=== PATIENT | female | born 1980 | race African-American/Black ===

== ENCOUNTER → 2020-09-22 09:08 | Outpatient (BNVA) | payer OTHER, SELFPAY | PROVIDERS: Visit Provider Obstetrics & Gynecology | DX: Z30.09 Encounter for other general counseling and advice on contraception (principal) | CPT/HCPCS: 99212 ==

== ENCOUNTER 2021-08-01 09:07 | Outpatient (REF) | payer OTHER, SELFPAY ==
[2021-08-03 16:37] LABS: HPV mRNA E6/E7 rflx Not Detected (Not Detected)
== END 2021-08-01 09:08 | disposition home or self-care (01) ==
LOC: HO.LAB 09:07
PROVIDERS: Visit Provider Obstetrics & Gynecology
DX: Z01.419 Encounter for gynecological examination (general) (routine) without abnormal findings (principal); Z11.51 Encounter for screening for human papillomavirus (HPV)
CPT/HCPCS: 87624; 88142

== ENCOUNTER 2021-10-06 11:42 | Emergency (ER) | payer OTHER, SELFPAY ==
--- NOTE | ~2021-10-06 | XR_ITS ---
EXAMINATION: XR KNEE, LEFT CLINICAL INFORMATION: Abrasion. Pain. COMPARISON: None TECHNIQUE: Four views of the left knee. FINDINGS: There is no evidence of acute fracture or dislocation of the left knee. No left knee effusion is seen. Left knee joint spaces are maintained. XR/XR knee LT 4V IMPRESSION: No bony abnormality of the left knee identified.
[2021-10-06 11:50] VITALS: BP 126/86; PULSE 99; RESP 18; TEMP 36.3; O2SAT 100; BMI 34.2
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
== END 2021-10-06 13:43 | disposition home or self-care (01) ==
PROVIDERS: Emergency Provider Emergency Medicine
DX: S80.212A Abrasion, left knee, initial encounter (principal); V43.52XA Car driver injured in collision with other type car in traffic accident, initial encounter; R51.9 Headache, unspecified; Y93.89 Activity, other specified; Y92.414 Local residential or business street as the place of occurrence of the external cause; Y99.9 Unspecified external cause status
CPT/HCPCS: 73564; 99283

== ENCOUNTER 2021-10-09 17:11 | Emergency (ER) | payer OTHER, SELFPAY ==
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
[2021-10-09 19:22] VITALS: BP 122/82; PULSE 95; RESP 16; TEMP 36.8; O2SAT 100; BMI 34.2
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
[2021-10-09 21:43] VITALS: BP 116/72; PULSE 85; RESP 20; TEMP 36.9; O2SAT 100
[2021-10-09 22:02] LABS: UPreg QC Valid YES; Urine Pregnancy NEGATIVE (NEGATIVE)
[2021-10-09] MEDS: Acetaminophen 325 MG TABLET 650 MG PO (22:50)
== END 2021-10-09 23:26 | disposition home or self-care (01) ==
PROVIDERS: Physician Assistant; Emergency Provider Internal Medicine
DX: S16.1XXA Strain of muscle, fascia and tendon at neck level, initial encounter (principal); S39.012A Strain of muscle, fascia and tendon of lower back, initial encounter; V49.9XXA Car occupant (driver) (passenger) injured in unspecified traffic accident, initial encounter; M48.061 Spinal stenosis, lumbar region without neurogenic claudication; M54.2 Cervicalgia; R51.9 Headache, unspecified; Y93.9 Activity, unspecified; Y92.9 Unspecified place or not applicable; Y99.9 Unspecified external cause status
CPT/HCPCS: 70450; 72125; 72131; 81025; 99284

== ENCOUNTER 2022-07-14 13:45 | Emergency (ER) | payer OTHER, SELFPAY ==
--- NOTE | ~2022-07-14 | US_ITS ---
EXAMINATION: US FIRST TRIMESTER CLINICAL INFORMATION: Vaginal bleeding LMP: End of April Beta-hC COMPARISON: Prior ultrasound 2020 TECHNIQUE: Transabdominal imaging was performed. FINDINGS: UTERUS AND INTRAUTERINE GESTATIONAL SAC: There is a single intrauterine gestational sac, 1.1 cm suggesting of 5 weeks 6 days. There are however no poles. No yolk sac.. CROWN-RUMP LENGTH (CRL) : There is no pole. YOLK SAC: Not found SUBCHORIONIC HEMORRHAGE: None OVARIES: Right: 4.5 x 3 x 3.1 cm, there is corpus luteal cyst 2.6 x 2.5 x 2.2 cm. Left: 3.1 x 2.3 x 1.9 cm. FREE FLUID: None OTHER FINDINGS: None US/US OB pelvic and transvaginal IMPRESSION: 1. There is a fluid-filled cystic structure within the endometrial canal might be a gestational sac 1.1 cm. There is however no pole identified. No yolk sac or cardiac activity. Might be too early in the . Attention to follow-up imaging surveillance recommended in 2 weeks. 2. Hypoechoic structure in the right ovary likely Corpus luteal cyst measures 2.6 cm.
[2022-07-14 13:47] VITALS: BP 137/78; PULSE 84; RESP 16; TEMP 36.7; O2SAT 100; BMI 35.5
--- NOTE | 2022-07-14 14:48 | ED_ITS ---
HPI - General Chief complaint: Vaginal Bleeding Stated complaint: /Vaginal bleeding Time Seen by Provider: 07/14/22 14:15 Source: patient Mode of arrival: ambulatory Limitations: no limitations History of Present Illness HPI Narrative: 41-year-old female who is [id number] who reports her last menstrual period was approximately the end of April presenting to the ED with complaints of possible with vaginal bleeding that started today. She reports that she is started having some scant vaginal bleeding no clots this morning. She denies any other symptoms related to this including fevers, chills, dizziness, headaches, neck pain/stiffness, trouble swallowing or breathing, chest pain or s hortness of breath, dyspnea on exertion, orthopnea, palpitations, paresthesias, abdominal pain, back pain, flank pain, dysuria, hematuria, abnormal vaginal discharge, black or bloody stools, recent travel or sick contacts, thoughts of STDs, recent falls or trauma or any other symptoms complaints or concerns at this time. MD Complaint: vaginal bleeding Onset (ago): hour(s) (Few hours prior to arrive) Pain Consistency: constant Severity: mild Relieving factors: none Exacerbating factors: none Associated symptoms: denies other symptoms Vaginal discharge: none Vaginal bleeding: light Date of Last Menstrual Period: 05/14/22 OB History - Previous Pregnancies: no complications care: none Related Data : 3 Para: 0 Total number of abortions (spontaneous and elective): 1 Home Medications Medication Instructions Recorded Confirmed ibuprofen 400 mg tablet 800 mg PO Q8H PRN pain 09/22/20 Previous Rx's Medication Instructions Recorded cyclobenzaprine 10 mg tablet 10 mg PO TID PRN muscle spasm #10 10/06/21 tabs diazepam 2 mg tablet (Valium) 2 mg PO BID PRN muscle spasm #6 10/09/21 tabs lidocaine 5 % topical patch 1 patch topical DAILY PRN pain #15 10/09/21 ea Allergies Allergy/AdvReac Type Severity Reaction Status Date / Time No Known Allergies Allergy Verified 10/06/21 11:50 Review of Systems Review of Systems: Constitutional : No Fever, No Chills ENT/Mouth : No sore throat, No Rhinorrhea Eyes: No Eye Pain, No Redness Cardiovascular : No Chest Pain, No SOB Respiratory : No Cough, No Sputum, No Wheezing Gastrointestinal : No Nausea, No Vomiting, No Diarrhea, No abdominal pain, Genitourinary : + irregular bleeding, No Dysuria, No Urinary Frequency, No pelvic pain, No vaginal discharge, no hematuria Musculoskeletal : No Myalgias Skin : No rash Neuro : No Weakness, No Headache Psych : No Anxiety/Panic, No Depression Heme/Lymph: No bruising, No Lymphadenopathy Endocrine : No Polyuria, No Polydipsia Yes all other systems are reviewed and are negative [facility] Past Medical History Attestation statement: The following information was validated with the patient. Source: old records reviewed and nursing notes reviewed Medical History ASCUS of cervix with negative high risk HPV : 3 Para: 0 Total number of abortions (spontaneous and elective): 1 Date of Last Menstrual Period: 05/14/22 Family History Family History Mother HTN (hypertension) Maternal Aunt Breast cancer Social History Social History Alcohol intake: never Patient Tobacco Use Status: Never used Tobacco Use of substances other than those prescribed or required for medical reasons: No Advance Directives: No Advance Directives Information Provided: No Patient : Yes Sexual orientation: Straight/Heterosexual Gender identity: Female Physical Exam Vital Signs: Vital Signs: Last Vital Signs Temp 98.7 F 07/14/22 16:00 Pulse 84 07/14/22 16:00 Resp 16 07/14/22 16:00 BP 121/77 07/14/22 16:00 Pulse Ox 97 07/14/22 16:00 O2 Del Method 07/14/22 16:00 BMI result Body Mass Index 35.5 vital signs have been reviewed as normal and appeared to be correct. Blood pressure normal. Heart rate normal. Respiration rate normal. Temperature normal. Oxygen saturation normal. Appearance: Alert. Oriented X3. No acute distress. Head: Normal external exam. Normocephalic. Atraumatic. Eyes: PERRLA. EOMI. Conjunctiva and sclera normal. Eyelids normal. ENT: Pharynx normal. Uvula midline. Moist mucous membranes. No trismus noted. No drooling noted. No muffled voice noted. Neck: Normal inspection. Neck supple. FROM. No adenopathy. Thyroid Normal. No meningeal signs. No neck mass noted. CVS: Normal heart rate and rhythm. Heart sound normal. No murmurs noted. Pulses normal throughout. Respiratory: No respiratory distress. Painless inspiration. Breath sounds normal. No wheezes/rales/rhonchi noted.No accessory muscle usage noted or decreased air movement noted. Abdomen: Soft and nontender. Bowel sounds normal in all 4 quadrants. No distention noted. No organomegaly noted. No visible injury noted. : Supervised by MARTÍN Manning Normal external appearance of urethra. No lesions/lacerations or discharge or tenderness noted. Speculum exam normal appearance/palpation of vagina normal. No abnormal vaginal discharge noted. Otherwise no vaginal erythema. No foreign bodies noted. No vaginal laceration/lesions noted. No tissue present in vagina. No vaginal mass noted. No vaginal swelling noted. No vaginal tenderness noted. Normal appearance of cervix. Normal palpation of cervix. Cervical os is closed. No abnormal cervical discharge noted. Although patient noted to have some dark red/brown colored vaginal bleeding although no active bleeding and no clots noted. No cervical lesion/mass. No Bartholin cyst noted. No cervical motion tenderness noted. Negative chandelier sign. Normal bimanual exam. Uterine size normal. Bladder normal to palpation. Uterine consistency normal. Normal cervical palpation. Uterine mobility normal. Uterine shape normal. Normal adnexa. Normal rectovaginal exam. Back: No CVA tenderness. Full range of motion noted. Skin: Skin warm and dry. Normal skin color. Normal skin turgor. No rashes/lesions/lacerations noted. Extremities: No lower extremity edema. Extremities exhibit normal range of motion. Extremities nontender. Neuro: Oriented X 3. No motor deficit. No sensory deficit. Reflexes normal. Course Course Course Narrative: 14:30pm - 41-year-old female who is [id number] who reports her last menstrual period was approximately the end of April presenting to the ED with complaints of possible with vaginal bleeding that started today. She reports that she is started having some scant vaginal bleeding no clots this morning. Plan: Will obtain labs including serum quant, Rh factor, UA, UHCG, swab for bacterial vaginosis/Trichomonas and gonorrhea chlamydia and re-evaluate Reevaluation(s) Reevaluation #1: - labs reviewed and patient BUN 6. Serum quant 4139. UA positive for . Trace blood otherwise no evidence of UTI. - Gonorrhea/chlamydia/bacterial vaginosis/Trichomonas and yeast swabs are pending. - patient O positive for blood type. - awaiting OB ultrasound at this time will re-evaluate. Time: 16:36 Reevaluation #2: - OB ultrasound revealed fluid-filled cystic structure within the endometrial canal might be a gestational sac 1.1 cm. However there is no pole identified. No yolk sac or cardiac activity noted. They report might be too early in . Recommend repeat ultrasound in 2 weeks. Also noted to have a possible corpus luteal cyst to the right ovary that measures 2.6 cm. Otherwise no other processes noted. - therefore at this time will consult with Dr. Herbie JO for further recommendations. Time: 17:48 Reevaluation #3: - we actually do not have any OB on-call. Therefore I discussed this case with Dr. Lira. Due to patient's cervical os being closed in her H&H being normal at this time we will discharge her and I will place the order for serum quant on Saturday07/16/2022 08:00 where she will have to go to the outpatient laboratory to have repeat serum quant. - I also explained her that she will have to call the OBGYN Dr. Stoner is office to follow up within 1-2 weeks for repeat evaluation/ultrasound. And I discussed with her about spontaneous symptoms and if she has any worsening symptoms or bleeding that she needs to return immediately. Patient understands agrees with this plan. Time: 18:34 MDM - OB/Uterine Contractions Medical Records Attestation: I reviewed the patient's medical records. Lab Data Attestation: I reviewed the patient's lab results. Result diagrams: 07/14/22 15:01 07/14/22 15:01 Labs: Lab Results 07/14/22 07/14/22 07/14/22 Range/Units 15:01 15:01 15:01 WBC 7.8 (4.8-10.8) X10*3/uL RBC 4.80 (4.20-5.50) X10*6/uL Hgb 12.5 (12.0-16.0) g/dl Hct 38.9 (37.0-47.0) % MCV 81.0 (80.0-98.0) fL MCH 26.0 L (27.0-33.0) pg MCHC 32.1 (31.0-35.0) g/dl RDW 13.7 (11.0-16.0) % Plt Count 350 (160-400) X10*3/uL MPV 8.9 L (9.4-12.3) fL Immature Gran % (Auto) 0.3 (0.0-0.4) % Neut % (Auto) 57.6 (45-73) % Lymph % (Auto) 35.4 (20-40) % [place] % (Auto) 6.1 (2-11) % Eos % (Auto) 0.3 (0-4) % Baso % (Auto) 0.3 (0-2) % Lymph # (Auto) 2.8 (1.2-4.9) X10*3/uL [place] # (Auto) 0.5 (0.1-1.2) X10*3/uL Eos # (Auto) 0.0 (0.0-0.4) X10*3/uL Baso # (Auto) 0.0 (0.0-0.2) X10*3/uL Abs Immat Gran (auto) 0.02 (0.00-0.03) X10*3/uL Absolute Neuts (auto) 4.5 (2.0-8.3) x10*3/uL Absolute Nucleated RBC 0.000 (0.0-0.012) X10*3/uL Nucleated RBC % (auto) 0.0 (0.0-0.2) /100WBC PT 11.5 (10.0-13.1) SEC INR 1.0 (0.9-1.1) Sodium 136 (135-145) mmol/L Potassium 3.8 (3.3-5.1) mmol/L Chloride 103 (96-108) mmol/L Carbon Dioxide 22 (22-29) mmol/L Anion Gap 15 (12-20) BUN 6 L (9-16) mg/dL Creatinine 0.73 (0.5-1.4) mg/dL Estim Creat Clear Calc 123.3 Estimated GFR > 60 Random Glucose 80 (60-115) mg/dL Calcium 9.2 (8.4-10.2) mg/dL Magnesium 1.9 (1.6-2.6) mg/dL Total Bilirubin 0.8 (0.0-1.0) mg/dL AST 20 (5-31) U/L ALT 26 (0-31) U/L Alkaline Phosphatase 76 (39-117) U/L Total Protein 7.9 (6.5-8.0) g/dL Albumin 4.1 (3.5-5.0) g/dL Lipase 38 (8-78) U/L Beta HCG, Quant 4139 mIU/mL Urine Color Urine Appearance Urine pH (5.0-8.0) Ur Specific [place] (1.005-1.025) Urine Protein (Neg-Trace) mg/dL Urine Glucose (UA) (Negative) mg/dL Urine Ketones (Negative) mg/dL Urine Blood (Negative) Urine Nitrite (Negative) Ur Leukocyte Esterase (Negative) Urine RBC (0-2) /HPF Urine WBC (0-5) /HPF Ur Squamous Epith Cells (0-2) /HPF Urine Bacteria (None Seen) Hyaline Casts (0-2) /LPF Urine Test (NEGATIVE) Blood Type 07/14/22 07/14/22 07/14/22 Range/Units 15:01 15:01 15:01 WBC (4.8-10.8) X10*3/uL RBC (4.20-5.50) X10*6/uL Hgb (12.0-16.0) g/dl Hct (37.0-47.0) % MCV (80.0-98.0) fL MCH (27.0-33.0) pg MCHC (31.0-35.0) g/dl RDW (11.0-16.0) % Plt Count (160-400) X10*3/uL MPV (9.4-12.3) fL Immature Gran % (Auto) (0.0-0.4) % Neut % (Auto) (45-73) % Lymph % (Auto) (20-40) % [place] % (Auto) (2-11) % Eos % (Auto) (0-4) % Baso % (Auto) (0-2) % Lymph # (Auto) (1.2-4.9) X10*3/uL [place] # (Auto) (0.1-1.2) X10*3/uL Eos # (Auto) (0.0-0.4) X10*3/uL Baso # (Auto) (0.0-0.2) X10*3/uL Abs Immat Gran (auto) (0.00-0.03) X10*3/uL Absolute Neuts (auto) (2.0-8.3) x10*3/uL Absolute Nucleated RBC (0.0-0.012) X10*3/uL Nucleated RBC % (auto) (0.0-0.2) /100WBC PT (10.0-13.1) SEC INR (0.9-1.1) Sodium (135-145) mmol/L Potassium (3.3-5.1) mmol/L Chloride (96-108) mmol/L Carbon Dioxide (22-29) mmol/L Anion Gap (12-20) BUN (9-16) mg/dL Creatinine (0.5-1.4) mg/dL Estim Creat Clear Calc Estimated GFR Random Glucose (60-115) mg/dL Calcium (8.4-10.2) mg/dL Magnesium (1.6-2.6) mg/dL Total Bilirubin (0.0-1.0) mg/dL AST (5-31) U/L ALT (0-31) U/L Alkaline Phosphatase (39-117) U/L Total Protein (6.5-8.0) g/dL Albumin (3.5-5.0) g/dL Lipase (8-78) U/L Beta HCG, Quant mIU/mL Urine Color Yellow Urine Appearance Clear Urine pH 6.5 (5.0-8.0) Ur Specific [place] <= 1.005 (1.005-1.025) Urine Protein Negative (Neg-Trace) mg/dL Urine Glucose (UA) Negative (Negative) mg/dL Urine Ketones Negative (Negative) mg/dL Urine Blood Trace H (Negative) Urine Nitrite Negative (Negative) Ur Leukocyte Esterase Negative (Negative) Urine RBC 0-2 (0-2) /HPF Urine WBC 0-5 (0-5) /HPF Ur Squamous Epith Cells 0-2 (0-2) /HPF Urine Bacteria None Seen (None Seen) Hyaline Casts 0-2 (0-2) /LPF Urine Test POSITIVE H (NEGATIVE) Blood Type O Positive Imaging Data OB ultrasound: Attestation: I personally reviewed and interpreted this imaging study as follows: Radiologist's impression: FINDINGS:? UTERUS AND INTRAUTERINE GESTATIONAL SAC: There is a single intrauterine gestational sac, 1.1 cm suggesting of 5 weeks 6 days. There are however no poles. No yolk sac.. CROWN-RUMP LENGTH (CRL) : There is no pole. YOLK SAC: Not found SUBCHORIONIC HEMORRHAGE: None OVARIES: Right: 4.5 x 3 x 3.1 cm, there is corpus luteal cyst 2.6 x 2.5 x 2.2 cm. Left: 3.1 x 2.3 x 1.9 cm. FREE FLUID: None OTHER FINDINGS: None US/US OB pelvic and transvaginal IMPRESSION: 1. There is a fluid-filled cystic structure within the endometrial canal might be a gestational sac 1.1 cm. There is however no pole identified. No yolk sac or cardiac activity. Might be too early in the . Attention to follow-up imaging surveillance recommended in 2 weeks. ? 2. Hypoechoic structure in the right ovary likely Corpus luteal cyst measures 2.6 cm. Critical Care Time Critical Care Time Critical Care Time: Yes Total Critical Care Time: 60 Attestation: I personally attest to this time spent taking care of the patient Discharge Plan Discharge Clinical Impression: Vaginal bleeding, Positive test Patient Disposition: Home, Self-Care Instructions: (ED), Threatened Miscarriage (ED) Additional Instructions: We were unable to identify a pole/sac on your ultrasound today there reporting that your possibly 5 weeks which may be too early to actually identify a pole/sac or cardiac activity on ultrasound. Therefore I placed an order in the computer for repeat blood work for a serum quant for Saturday07/16/2022. You will go to the outpatient office by 08:00 and have repeat labs. Then you will call Dr. Stoner is office and make a follow-up appointment within 1 week for repeat ultrasound and further evaluation treatment. Although if you have any worsening symptoms including abdominal pain/worsening vaginal bleeding then you need to return immediately. Prescriptions: No Action diazepam [Valium] 2 mg tablet 2 mg PO BID PRN (Reason: muscle spasm) Qty: 6 0RF Rx Instructions: Patient can partially fill prescription upon request lidocaine 5 % adhesive patch,medicated 1 patch topical DAILY PRN (Reason: pain) Qty: 15 0RF Rx Instructions: leave on most painful area for up to 12 hrs cyclobenzaprine 10 mg tablet 10 mg PO TID PRN (Reason: muscle spasm) Qty: 10 0RF ibuprofen 400 mg tablet 800 mg PO Q8H PRN (Reason: pain) Referrals: Ki Stoner MD [Physician] - 2 days (Call to make a follow-up appointment within 1 week)
[2022-07-14 15:09] LABS: Basophils Percent Auto 0.3 % (0-2); Eosinophils Percent Auto 0.3 % (0-4); Hematocrit 38.9 % (37.0-47.0); Hemoglobin 12.5 g/dl (12.0-16.0); Imm Gran Abs Auto 0.02 X10*3/uL (0.00-0.03); Imm Gran Pct Auto 0.3 % (0.0-0.4); Lymphocytes Absolute Auto 2.8 X10*3/uL (1.2-4.9); Lymphocytes Percent Auto 35.4 % (20-40); MANUAL DIFF FLAG NO; Mean Corpuscular HGB Conc 32.1 g/dl (31.0-35.0); Mean Platelet Volume 8.9 fL (9.4-12.3); Monocytes Absolute Auto 0.5 X10*3/uL (0.1-1.2); Monocytes Percent Auto 6.1 % (2-11); Neutrophils Absolute Auto 4.5 x10*3/uL (2.0-8.3); Neutrophils Percent Auto 57.6 % (45-73); Platelet Count 350 X10*3/uL (160-400); Red Cell Distribution Width 13.7 % (11.0-16.0); White Blood Count 7.8 X10*3/uL (4.8-10.8)
[2022-07-14 15:11] LABS: Appearance Urine Clear; Color Urine Yellow; Glucose Urine UA Negative (Negative); Leukocyte Esterase Urine Negative (Negative); Nitrite Urine Negative (Negative); PH 6.5 (5.0-8.0); Specific Gravity - Urine <= 1.005 (1.005-1.025); Urine Blood Trace (Negative); Urine Ketones Negative (Negative); Urine Protein Negative (Neg-Trace)
[2022-07-14 15:13] LABS: UPreg QC Valid YES; Urine Pregnancy POSITIVE (NEGATIVE)
[2022-07-14 15:15] LABS: Prothrombin Time 11.5 SEC (10.0-13.1)
[2022-07-14 15:16] LABS: Bacteria Urine None Seen (None Seen); Hyaline Casts Urine 0-2 /LPF (0-2); RBC Urine 0-2 /HPF (0-2); Squamous Epithelial Cell Urine 0-2 /HPF (0-2); WBC Urine 0-5 /HPF (0-5)
[2022-07-14 15:42] LABS: Alanine Aminotransferase 26 U/L (0-31); Albumin Level 4.1 g/dL (3.5-5.0); Alkaline Phosphatase 76 U/L (39-117); Anion Gap 15 (12-20); Aspartate Amino Transferase 20 U/L (5-31); Bilirubin Total 0.8 mg/dL (0.0-1.0); Blood Urea Nitrogen 6 mg/dL (9-16); Calcium 9.2 mg/dL (8.4-10.2); Carbon Dioxide 22 mmol/L (22-29); Chloride 103 mmol/L (96-108); Creatinine Clr Calc Pharmacy 123.3; Estimated Glomerular Filt Rate > 60; Glucose Random 80 mg/dL (60-115); Lipase 38 U/L (8-78); Magnesium 1.9 mg/dL (1.6-2.6); Potassium 3.8 mmol/L (3.3-5.1); Sodium 136 mmol/L (135-145); Total Protein 7.9 g/dL (6.5-8.0)
[2022-07-14 15:47] LABS: HCG Quantitative 4139 mIU/mL
[2022-07-14 16:00] VITALS: BP 121/77; PULSE 84; RESP 16; TEMP 37.1; O2SAT 97
--- NOTE | 2022-07-14 16:43 | PC.NURSE ---
pt a&ox3, vss, denies any pain, pt pending transvaginal u/s. no new orders at this time
[2022-07-15 12:09] LABS: CT PCR NOT DETECTED (Not Detect.); NG PCR NOT DETECTED (Not Detect.)
[2022-07-15 13:56] LABS: BV Int Neg Control Negative (Negative); BV Int Pos Control Positive (Positive)
== END 2022-07-14 18:50 | disposition home or self-care (01) ==
PROVIDERS: Physician Assistant Medical; Emergency Provider Emergency Medicine
DX: O20.9 Hemorrhage in early pregnancy, unspecified (principal); O34.81 Maternal care for other abnormalities of pelvic organs, first trimester; N83.201 Unspecified ovarian cyst, right side; O09.521 Supervision of elderly multigravida, first trimester; Z3A.01 Less than 8 weeks gestation of pregnancy
CPT/HCPCS: 36415; 76801; 76817; 80053; 81001; 81025; 83690; 83735; 84702; 85025; 85610; 86900; 86901; 87480; 87491; 87510; 87591; 87660; 99284

== ENCOUNTER 2022-07-16 08:12 | Outpatient (REF) | payer OTHER, SELFPAY ==
[2022-07-16 09:17] LABS: HCG Quantitative 3781 mIU/mL
== END 2022-07-16 08:13 | disposition home or self-care (01) ==
LOC: HO.LAB 08:12
PROVIDERS: Visit Provider Physician Assistant Medical
DX: O20.0 Threatened abortion (principal)
CPT/HCPCS: 36415; 84702

== ENCOUNTER 2022-07-17 12:50 | Outpatient (REF) | payer OTHER, SELFPAY ==
[2022-07-17 14:33] LABS: HCG Quantitative 1591 mIU/mL
== END 2022-07-17 12:51 | disposition home or self-care (01) ==
LOC: HO.LAB 12:50
PROVIDERS: PCP Internal Medicine; Visit Provider Obstetrics & Gynecology
DX: O20.0 Threatened abortion (principal); O20.9 Hemorrhage in early pregnancy, unspecified; O09.521 Supervision of elderly multigravida, first trimester; Z3A.01 Less than 8 weeks gestation of pregnancy
CPT/HCPCS: 36415; 84702; 99212

== ENCOUNTER 2022-07-31 09:46 | Outpatient (REF) | payer OTHER, SELFPAY ==
[2022-07-31 12:48] LABS: HCG Quantitative 7 mIU/mL
== END 2022-07-31 09:47 | disposition home or self-care (01) ==
LOC: HO.LAB 09:46
PROVIDERS: PCP Internal Medicine; Visit Provider Obstetrics & Gynecology
DX: O03.9 Complete or unspecified spontaneous abortion without complication (principal)
CPT/HCPCS: 36415; 84702; 99212

== ENCOUNTER → 2022-10-30 08:43 | Outpatient (BNVA) | payer OTHER, SELFPAY | PROVIDERS: PCP Internal Medicine; Visit Provider Obstetrics & Gynecology | DX: Z01.419 Encounter for gynecological examination (general) (routine) without abnormal findings (principal); N94.9 Unspecified condition associated with female genital organs and menstrual cycle | CPT/HCPCS: 99212 ==

== ENCOUNTER 2022-12-04 11:18 | Outpatient (REF) | payer OTHER, SELFPAY ==
--- NOTE | ~2022-12-04 | US_ITS ---
EXAMINATION: US PELVIS CLINICAL INFORMATION: Unspecified condition. COMPARISON: None. TECHNIQUE: Ultrasound of the pelvis is performed using both transabdominal and transvaginal transducers along with Doppler. Transvaginal imaging is performed due to inadequate visualization transabdominally. FINDINGS: Uterus: The uterus is anteverted, anteflexed and measures 8.6 x 5.5 x 6.1 The double wall endometrial thickness is 1.2 cm. The uterus is smooth in contour and has normal myometrial echogenicity. No visible fibroid. Adnexa: Both ovaries are visualized. There is normal color flow to the adnexa. There is no ovarian torsion. There is no pelvic ascites or fluid collection. Right ovary measures 4.3 x 1.5 x 1.7 cm and volume 5.7 mL. No focal lesion seen. Previously right ovary measured 4.5 x 3.0 x 3.1 cm. Left ovary measures 6.3 x 3.8 x 3.6 cm and volume 45.1 mL. There is anechoic cyst with septation measuring 3.0 x 2.8 x 2.7 cm. It is likely hemorrhagic or complex cyst. Luteal cyst measuring 3.0 x 2.8 x 2.7 cm. There is small amount of free fluid seen in the endometrial canal with small cyst. US/US pelvic and transvaginal IMPRESSION: 1. Hemorrhagic or corpus luteal 3.0 cm cyst left ovary. 2. The right ovary and uterus are unremarkable. 3. There is minimal free fluid in the endometrial canal.
== END 2022-12-04 11:19 | disposition home or self-care (01) ==
LOC: HO.US 11:18
PROVIDERS: Visit Provider Obstetrics & Gynecology
DX: N94.9 Unspecified condition associated with female genital organs and menstrual cycle (principal)
CPT/HCPCS: 76830; 76856

== ENCOUNTER 2022-12-18 11:15 | Outpatient (REF) | payer OTHER, SELFPAY ==
[2022-12-18 12:47] LABS: HCG Quantitative < 2 mIU/mL
[2022-12-18 17:05] LABS: CT PCR NOT DETECTED (Not Detect.); NG PCR NOT DETECTED (Not Detect.)
== END 2022-12-18 11:16 | disposition home or self-care (01) ==
LOC: HO.LNP 11:15
PROVIDERS: PCP Internal Medicine; Visit Provider Obstetrics & Gynecology
DX: O03.9 Complete or unspecified spontaneous abortion without complication (principal); N83.299 Other ovarian cyst, unspecified side
CPT/HCPCS: 0353U; 84702; 99212

== ENCOUNTER 2023-03-29 13:00 | Outpatient (REF) | payer OTHER, SELFPAY ==
--- NOTE | ~2023-03-29 | US_ITS ---
EXAM: Pelvic Ultrasound CLINICAL INDICATION: Ovarian cyst COMPARISON: Pelvic ultrasound 12/04/2022 TECHNIQUE: The pelvis was evaluated using transabdominal and transvaginal imaging. Color Doppler imaging and spectral analysis of the bilateral ovaries was also performed. FINDINGS: The uterus measures 7.5 x 4.6 x 5.6 cm in longitudinal by AP by transverse dimension. The endometrial stripe is not thickened and measures 0.4 cm. Trace fluid noted within the endometrium. An approximately 1 cm fundal fibroid is noted. The left ovary measures approximately 3.1 x 2.4 x 2.1 cm and is normal. The right ovary measures approximately 4.5 x 2.0 x 4.0 cm and is also normal. There are no abnormal adnexal masses. There is a small amount of free fluid in the pelvis. US/US pelvic and transvaginal IMPRESSION: 1. Normal thickness endometrial stripe. 2. Trace fluid noted within the endometrium. 3. Normal sonographic appearance of the ovaries. 4. Small uterine fibroid. 5. Small amount of free pelvic fluid, often times physiologic in a female of this age.
== END 2023-03-29 13:01 | disposition home or self-care (01) ==
LOC: HO.US 13:00
PROVIDERS: PCP Internal Medicine; Visit Provider Obstetrics & Gynecology
DX: N83.299 Other ovarian cyst, unspecified side (principal)
CPT/HCPCS: 76830; 76856

== ENCOUNTER → 2023-04-24 09:40 | Outpatient (BNVA) | payer OTHER, SELFPAY | PROVIDERS: PCP Internal Medicine; Visit Provider Obstetrics & Gynecology | DX: N83.299 Other ovarian cyst, unspecified side (principal); D25.9 Leiomyoma of uterus, unspecified | CPT/HCPCS: 99212 ==

== ENCOUNTER → 2023-11-04 10:47 | Outpatient (BNVA) | payer OTHER, SELFPAY | PROVIDERS: PCP Internal Medicine; Visit Provider Obstetrics & Gynecology | DX: Z01.419 Encounter for gynecological examination (general) (routine) without abnormal findings (principal) | CPT/HCPCS: 99396 ==

== ENCOUNTER 2023-11-04 10:48 | Outpatient (AMB) | payer OTHER, SELFPAY ==
--- NOTE | 2023-11-04 10:49 | A.OFFVIS_ITS ---
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 No complaints. Last Pap/HPV was in 08/08 was negative No previous screening Mammogram [facility] Medical History ASCUS of cervix with negative high risk HPV Family History Mother HTN (hypertension) Maternal Aunt Breast cancer Social History Alcohol intake: never Patient Tobacco Use Status: Never used Tobacco Sexual orientation: Straight/Heterosexual Gender identity: Female Female Reproductive History Menstrual Age of Menarche: 14 Date of last menstrual period: 10/23/23 Total pregnancies: 4 Full term: 3 Number of Living Children: 3 Ab spontaneous: 1 Date of last pap smear: 08/02/21 Review of Systems Const All systems reviewed & are unremarkable except as noted in HPI and below Card Reports as per HPI Resp Reports as per HPI GI Reports as per HPI and Reports no additional complaints Reports as per HPI Physical Exam Vital Signs: Last Vital Signs BP 122/80 11/04/23 10:51 BMI result Body Mass Index 33.2 Const General: cooperative, healthy appearing and comfortable Chest Chest palpation & inspection: normal inspection of the chest and normal palpation of entire chest wall Breast/axilla inspection: normal inspection of the breasts and normal inspection of the axillae Breast/axilla palpation: normal palpation of the breasts, normal palpation of the axillae and no axillary lymphadenopathy Resp Effort & Inspection: normal respiratory effort Auscultation: clear to auscultation bilaterally Percussion: percussion normal Cardio Palpation: normal PMI Rate: regular rate Rhythm: regular rhythm Heart sounds: no murmurs and no rubs Peripheral pulses: Peripheral pulses 2+ throughout GI Inspection: Yes normal to inspection Palpation (GI): Soft to palpation, nontender, no guarding, not rigid and No hepatosplenomegaly present Percussion: Yes normal to percussion Auscultation: normal bowel sounds Rectal Exam - Female: deferred General: Yes bladder normal to palpation External Female Exam: No lesion Speculum Exam - Vagina: normal appearance of the vagina, normal palpation, normal vaginal discharge and not erythematous Speculum Exam - Cervix: normal appearance of the cervix and normal palpation Bimanual exam- vagina & uterus: normal bimanual exam, normal palpation, uterine size normal, bladder normal to palpation, consistency normal and normal palpation Bimanual Exam- Adnexa, other: normal adnexae, no masses and no tenderness Assessment & Plan Assessment & Plan (1) Well woman exam: Comment: ASCUS HPV negative in 2019 with colpo biopsy negative Negative co testing in 2020 Code(s): Z01.419 - Encounter for gynecological examination (general) (routine) without abnormal findings Plan: Cotesting not indicated this. Mammogram ordered. Counseled the patient about the recommended dietary allowance of 1000 mg of Calcium & 600 IU of vitamin D. The patient was instructed to perform monthly self-breast exams and to schedule an annual exam in a year; All questions answered and the patient verbalized understanding. Instructed the patient to schedule annual exam in a year Orders: Orders MM screening mammo BI Today Z12.31 - Encounter for screening mammogram for malignant neoplasm of breast Coding Level of Care Code Est Pt Prev Care 40-64y(88517) Diagnoses Well woman exam Z01.419
[2023-11-04 10:51] VITALS: BP 122/80; BMI 33.2
== END 2023-11-04 11:31 | disposition home or self-care (01) ==
PROVIDERS: PCP Internal Medicine; Visit Provider Obstetrics & Gynecology
DX: Z01.419 Encounter for gynecological examination (general) (routine) without abnormal findings (principal)
CPT/HCPCS: 99396

== ENCOUNTER 2023-11-07 23:18 | Emergency (ER) | payer OTHER, SELFPAY ==
[2023-11-07 23:27] VITALS: BP 129/90; PULSE 85; RESP 16; TEMP 36.2; O2SAT 99; BMI 35.8
[2023-11-08 00:01] LABS: IDNOW Serial# 08D9AD1C; Strep A Nucleic Acid Negative (Negative)
[2023-11-08 00:38] LABS: Influenza A PCR NEGATIVE (Negative); Influenza B PCR NEGATIVE (Negative); Resp Syncy Virus RNA Qual PCR NEGATIVE (Negative); SARS COV2 PCR INHOUSE NEGATIVE (Negative)
--- NOTE | 2023-11-08 01:10 | ED_ITS ---
HPI - URI/Sore Throat General Chief Complaint: Upper Respiratory Symptoms Stated Complaint: difficulty swallowing, cough Time Seen by Provider: 11/08/23 01:05 Source: patient Mode of arrival: ambulatory Limitations: no limitations History of Present Illness HPI Narrative: 42 yo female with no sig PMH here with c/o sore throat x 3 days and pain when swallowing no fevers no change in voice. Has had tonsillitis one other time MD elicited complaint: sore throat Onset (ago): day(s) (3) Consistency: constant Severity: moderate Description of mucous: clear Able to tolerate fluids by mouth: Yes Exacerbating factors: swallowing Relieving factors: nothing Associated symptoms: denies other symptoms Treatments prior to arrival: none Related Data Home Medications Medication Instructions Recorded Confirmed calcium acetate 667 mg tablet 667 mg PO ONCE 11/04/23 cholecalciferol (vitamin D3) 25 25 mcg PO DAILY 11/04/23 mcg (1,000 unit) capsule Previous Rx's Medication Instructions Recorded amoxicillin 875 mg-potassium 1 tab PO BID #13 tabs 11/08/23 clavulanate 125 mg tablet Allergies Allergy/AdvReac Type Severity Reaction Status Date / Time No Known Allergies Allergy Verified 11/04/23 10:54 Review of Systems Review of Systems: Constitutional : no Fever, no Chills ENT/Mouth : positive sore throat, no runny nose Eyes: No Discharge Cardiovascular : No Chest Pain, No SOB Respiratory : No Cough, No Sputum Gastrointestinal : No Nausea, No Vomiting, No Diarrhea Genitourinary : No Dysuria, No Urinary Frequency Musculoskeletal : no Myalgia Skin : No rash Neuro : No Headache PMFSH Past Medical History Medical History ASCUS of cervix with negative high risk HPV Family History Family History Mother HTN (hypertension) Maternal Aunt Breast cancer Social History Social History Alcohol intake: never Patient Tobacco Use Status: Never used Tobacco Sexual orientation: Straight/Heterosexual Gender identity: Female Physical Exam Vital Signs: Vital Signs: Last Vital Signs Temp 97.2 F 11/07/23 23:27 Pulse 85 11/07/23 23:27 Resp 16 12/21/23 23:27 BP 129/90 H 12/21/23 23:27 Pulse Ox 99 11/07/23 23:27 O2 Del Method Room Air 11/07/23 23:27 BMI result Body Mass Index 35.8 Appearance: Alert. Oriented X3. No acute distress. Eyes: Pupils equal, round and reactive to light. ENT: Pharynx moderate erythema , mild tonsilar swelling R tonsil does have exudates there is no uvula shift or signs of SHINGLE CARRIER or deeper space infection Neck: Normal inspection. Neck supple. CVS: Normal heart rate and rhythm. Pulses normal. Respiratory: No respiratory distress. Breath sounds normal. Abdomen: Soft and non-tender. Skin: Skin warm and dry. Normal skin color. Extremities: No lower extremity edema. Neuro: Oriented X 3. No motor deficit. No sensory deficit. Medical Decision Making Medical Decision Making [facility] Narrative: 42 yo female here with sore throat x 3 days not toxic, no signs of deeper space infection or SHINGLE CARRIER - will obtain swabs and viral panel suspect tonsillitis - start on augmentin Differential Diagnosis Differential Diagnoses: The differential diagnosis associated with the presen tation includes strep, tonsillitis Lab Data [facility] Lab Attestation statement: I reviewed the patient's lab results. Labs: Lab Results 11/07/23 Range/Units 23:35 Influenza Type A (PCR) NEGATIVE (Negative) Influenza Type B (PCR) NEGATIVE (Negative) RSV RNA Qual (PCR) NEGATIVE (Negative) SARS-CoV-2 RNA (RT-PCR) NEGATIVE (Negative) S. pyogenes GrpA MARGUERITE Negative (Negative) External Record Review External record reviewed: Office record Prescription Management I considered prescription management with: Antibiotic Discharge Plan Discharge Clinical Impression: Acute tonsillitis Qualifiers: Pharyngitis/tonsillitis etiology: unspecified etiology Qualified Code(s): J03.90 - Acute tonsillitis, unspecified Patient Disposition: Home, Self-Care Instructions: Tonsillitis (ED) Additional Instructions: return for worsening pain, difficulty swallowing, drooling, fevers no improvement in 2 days On amoxicillin-clavulanate, softer bowel movements are to be expected. Call your provider if you move your bowels more than 4 times a day, your bowel movements are almost all liquid, or you get a rash.? Prescriptions: New amoxicillin-pot clavulanate 875-125 mg tablet 1 tab PO BID Qty: 13 0RF No Action cholecalciferol (vitamin D3) 25 mcg (1,000 unit) capsule 25 mcg PO DAILY calcium acetate 667 mg tablet 667 mg PO ONCE Stand Alone Forms: Work/School Release
[2023-11-08] MEDS: Amoxicillin/Potassium Clav 875 MG TABLET PO (01:18)
== END 2023-11-08 01:23 | disposition home or self-care (01) ==
LOC: HO.ED 11-08 01:22
PROVIDERS: Emergency Provider Emergency Medicine
DX: J03.90 Acute tonsillitis, unspecified (principal); R13.10 Dysphagia, unspecified; R05.9 Cough, unspecified; Z20.822 Contact with and (suspected) exposure to COVID-19; Z20.828 Contact with and (suspected) exposure to other viral communicable diseases
CPT/HCPCS: 0241U; 87651; 99282; 99283

== ENCOUNTER 2023-11-14 08:58 | Outpatient (REF) | payer OTHER, SELFPAY ==
--- NOTE | ~2023-11-14 | MM_ITS ---
EXAMINATION: MM SCREENING DIGITAL BREAST TOMOSYNTHESIS, BILATERAL CLINICAL INFORMATION: Screening. Asymptomatic. COMPARISON: Mammography: There are no prior mammograms for comparison. This is a baseline study. TECHNIQUE: Digital breast tomosynthesis is performed in both the craniocaudal and mediolateral oblique views along with computer-aided detection (CAD). Synthesized 2D images are generated from the tomosynthesis. FINDINGS: There are scattered areas of fibroglandular density (ACR BI-RADS breast composition Category b). There are no significant masses, abnormal calcifications, or other abnormalities. MM/MM tomosynthesis screening BI IMPRESSION: No mammographic evidence of malignancy. ASSESSMENT: BI-RADS BI-RADS 1 - Negative RECOMMENDATION: Routine annual mammography screening. 1 year F/U This examination should not preclude the clinical evaluation of a suspicious palpable abnormality. This patient's information was entered into a reminder system with a target due date for their next mammogram.
== END 2023-11-14 08:59 | disposition home or self-care (01) ==
LOC: HO.MAMMO 08:58
PROVIDERS: PCP Internal Medicine; Visit Provider Obstetrics & Gynecology
DX: Z12.31 Encounter for screening mammogram for malignant neoplasm of breast (principal)
CPT/HCPCS: 77063; 77067

== ENCOUNTER → 2023-11-14 09:00 | Outpatient (BNV) | payer OTHER, SELFPAY | PROVIDERS: PCP Internal Medicine; Visit Provider Radiology Diagnostic Radiology | DX: Z12.31 Encounter for screening mammogram for malignant neoplasm of breast (principal) | CPT/HCPCS: 77063; 77067 ==

== ENCOUNTER 2024-02-21 17:39 | Emergency (ER) | payer OTHER, SELFPAY ==
--- NOTE | 2024-02-21 18:03 | ED.GENADULT ---
HPI - General Adult General Chief complaint: Upper Respiratory Symptoms Stated complaint: throat pain, dry Time Seen by Provider: 02/21/24 18:29 Source: patient, RN notes reviewed and old records reviewed Mode of arrival: ambulatory Limitations: no limitations History of Present Illness HPI narrative: 43-year-old female presents for evaluation of sore throat and a dry cough. Patient reports her symptoms started 4 or 5 days ago. Her son is present with a fever and upper respiratory symptoms as well. Patient denies any chest pain, shortness of breath, abdominal pain nausea vomiting Denies any rashes No other complaints or concerns at this time Related Data Home Medications ?Medication ?Instructions ?Recorded ?Confirmed calcium acetate 667 mg tablet 667 mg PO ONCE 11/04/23 cholecalciferol (vitamin D3) 25 25 mcg PO DAILY 11/04/23 mcg (1,000 unit) capsule Previous Rx's ?Medication ?Instructions ?Recorded amoxicillin 875 mg-potassium 1 tab PO BID #13 tabs 11/08/23 clavulanate 125 mg tablet Allergies Allergy/AdvReac Type Severity Reaction Status Date / Time No Known Allergies Allergy Verified 02/21/24 18:10 Review of Systems Constitutional: Constitutional: Denies body ache(s), Denies chills and Denies fever(s) ENT: Denies otalgia and Reports sore throat Cardiovascular: Cardiovascular: Denies chest pain and Denies dyspnea Respiratory: Respiratory: Reports cough, Denies pain with cough and Denies dyspnea Gastrointestinal: Gastrointestinal: Denies abdominal pain, Denies nausea and Denies vomiting Genitourinary: Genitourinary: Denies dysuria Musculoskeletal: Musculoskeletal: Denies back pain Integumentary/Breasts: Skin/Breast: Denies rash PMFSH Past Medical History Medical History ASCUS of cervix with negative high risk HPV Family History Family History Mother HTN (hypertension) Maternal Aunt Breast cancer Social History Social History Alcohol intake: never Patient Tobacco Use Status: Never used Tobacco Advance Directives: No Advance Directives Information Provided: No Sexual orientation: Straight/Heterosexual Gender identity: Female Physical Exam ED Vital Signs: Vital Signs - 24 hr 02/21/24 18:07 Temperature 98.6 F Pulse Rate 85 Respiratory Rate 16 Blood Pressure 127/82 Pulse Oximetry 100 Oxygen Delivery Method Room Air BMI result Body Mass Index 33.4 Const General: healthy appearing, comfortable, no acute distress, alert and awake Nutritional Appearance: well nourished Orientation/consciousness: patient oriented x3 HENMT Head: Yes normocephalic and Yes atraumatic Throat: Yes posterior oropharynx normal Eyes Eyelids: Yes eyelids normal Conjunctivae: conjunctivae normal Sclerae: sclerae normal Corneas: corneas normal Pupils: Equal, round and reactive pupils present EOM: EOMs intact bilaterally Neck Neck: Yes full ROM Resp Effort & Inspection: normal respiratory effort, able to speak in complete sentences, no audible wheezes and not labored Auscultation: clear to auscultation bilaterally Cardio Rate: regular rate Rhythm: regular rhythm GI Inspection: No distended Palpation (GI): Soft to palpation, not firm, nontender, no guarding and not rigid Skin General skin exam: no rashes or lesions noted and elasticity normal Neuro General: patient oriented x3 Cranial nerves: Yes Equal, round and reactive pupils present and Yes Bilaterally intact EOM present Cognition (Neuro): normal cognition Extrem Other: Moving all extremities well without any obvious deformities Course Course Course Narrative: RME performed by Sandee Nieves PA-C. Patient is a 43 year old assigned male at presenting to the emergency department with a sore throat and feeling generally unwell. Detailed physical exam and review of systems are deferred to the substance abuse clinician. Swabs ordered. Patient placed back in the waiting room pending room availability and results. Medical Decision Making Medical Decision Making MDM Narrative: 43-year-old female presents for evaluation of a dry cough and sore throat. She is quite well appearing. Her oropharynx is without erythema, exudates. There is no evidence of abscess. Patient tested negative for influenza, COVID-19, RSV and strep throat. Plan for conservative treatment Differential Diagnosis Differential Diagnoses: The differential diagnosis associated with the presentation includes Viral syndrome Strep pharyngitis Upper respiratory infection COVID-19 Influenza Lab Data Labs: Lab Results 02/21/24 Range/Units 18:12 Influenza Type A (PCR) NEGATIVE (Negative) Influenza Type B (PCR) NEGATIVE (Negative) RSV RNA Qual (PCR) NEGATIVE (Negative) SARS-CoV-2 RNA (RT-PCR) NEGATIVE (Negative) S. pyogenes GrpA MARGUERITE Negative (Negative) Discharge Plan Discharge Clinical Impression: Acute viral syndrome Patient Disposition: Home, Self-Care Instructions: Viral Syndrome (ED) Additional Instructions: Your symptoms are most likely related to a virus. However you tested negative for influenza, COVID-19, and RSV You also tested negative for strep throat. Use ibuprofen/Tylenol as needed for any further fevers You may use an [id number] cough or allergy medication to help alleviate your symptoms Follow-up with your primary doctor Return for new or worsening symptoms Prescriptions: No Action amoxicillin-pot clavulanate 875-125 mg tablet 1 tab PO BID Qty: 13 0RF cholecalciferol (vitamin D3) 25 mcg (1,000 unit) capsule 25 mcg PO DAILY calcium acetate 667 mg tablet 667 mg PO ONCE Print Language: [place]
[2024-02-21 18:07] VITALS: BP 127/82; PULSE 85; RESP 16; TEMP 37; O2SAT 100; BMI 33.4
[2024-02-21 18:30] LABS: IDNOW Serial# 08D9AD1C; Strep A Nucleic Acid Negative (Negative)
[2024-02-21 18:57] LABS: Influenza A PCR NEGATIVE (Negative); Influenza B PCR NEGATIVE (Negative); Resp Syncy Virus RNA Qual PCR NEGATIVE (Negative); SARS COV2 PCR INHOUSE NEGATIVE (Negative)
[2024-02-21 19:16] VITALS: BP 127/83; PULSE 83; RESP 17; TEMP 37; O2SAT 100
== END 2024-02-21 19:17 | disposition home or self-care (01) ==
PROVIDERS: Physician Assistant Medical; Emergency Provider Emergency Medicine; PCP Internal Medicine
DX: B34.9 Viral infection, unspecified (principal)
CPT/HCPCS: 0241U; 87651; 99282; 99283